=== PATIENT | male | born 1965 | race Caucasian/White ===

== ENCOUNTER 2017-11-07 08:05 | Emergency (ER) | payer OTHER ==
[~2017-11-07] VITALS: Ht 165.1 cm; Wt 87.8 kg
[2017-11-07 08:12] VITALS: Ht 165.1 cm; Wt 87.8 kg
[2017-11-07 12:41] LABS: microscopic required? NO
[2017-11-07 13:04] LABS: urine erythrocyte NEGATIVE (NEGATIVE)
[2017-11-07 13:35] LABS: CALCIUM 8.7 mg/dL (8.5-10.1); CARBON DIOXIDE 22.6 mmol/L (21-32); CHLORIDE SERUM 103 mmol/L (98-107); CREATININE SERUM 0.9 mg/dL (0.7-1.3); GFR1 > 60 mL/min; GLUCOSE SERUM 128 mg/dL (74-106); POTASSIUM SERUM 3.7 mmol/L (3.5-5.1); SODIUM SERUM 138 mmol/L (136-145)
[2017-11-07 13:39] LABS: ALBUMIN 3.8 g/dL (3.4-5.0); ALKALINE PHOSPHATASE 82 U/L (46-116); ALT/SGPT 23 U/L (16-63); AMYLASE 56 U/L (25-115); AST/SGOT 22 U/L (15-37); BILIRUBIN TOTAL 0.52 mg/dL (0.20-1.00); CHOLESTEROL 169 mg/dL (<200); HDL CHOLESTEROL 38 mg/dL (40-60); LIPASE 168 IU/L (73-393)
[2017-11-07 13:40] LABS: PLATELET COUNT 219 x10^3mcL (130-400); RED CELL DISTRIBUTION WIDTH 13.2 % (11.5-14.5)
[2017-11-07 13:43] LABS: TOTAL PROTEIN, SERUM 8.3 g/dL (6.4-8.2)
[2017-11-07 14:16] LABS: BAND NEUTROPHIL 1 % (0-10); BASOPHIL 0 % (0-2); MONOCYTE 2 % (0-7); SEGMENTED NEUTROPHILS 96 % (37-75)
[2017-11-07 14:17] LABS: PLATELET MORPHOLOGY PLATELETS DECREASED; rbc morphology (normal/abnorm) ABNORMAL (NORMAL)
[2017-11-07 16:02] VITALS: BP 146/75
== END 2017-11-07 15:45 | disposition left against medical advice (07) ==
LOC: ED 08:05
PROVIDERS: Emergency Medicine
DX: K80.20 Calculus of gallbladder without cholecystitis without obstruction (principal); D72.829 Elevated white blood cell count, unspecified
CPT/HCPCS: 83880; J1885; J2405; J3490; J7030; Q0092; Q9967